=== PATIENT | male | born 1965 | race Caucasian/White ===

== ENCOUNTER 2021-09-01 15:48 | Emergency (ER) | payer OTHER ==
[~2021-09-01] VITALS: Ht 172.7 cm; Wt 124.7 kg
[2021-09-01] MEDS ORDERED: TESSALON PERLE100 MG PO (19:10)
[2021-09-01 19:26] VITALS: BP 141/74
== END 2021-09-01 19:27 | disposition home or self-care (01) ==
LOC: M.ERS 15:48
DX: U07.1 COVID-19 (principal)